=== PATIENT | male | born 1970 | race Caucasian/White ===

== ENCOUNTER → 2017-07-19 | Outpatient (CLI) | payer OTHER ==
[~2017-07-19] MED LIST: BENICAR40 MG PO; IOPAMIDOL 370 MG/ML 200 ML INFUS..BTL INJ ONE; LORATADINE10 MG PO; METOPROLOL SUCC50 MG PO; SODIUM CHLORIDE 0.9% 100 ML ONE
[2017-07-19 18:11] LABS: BLOOD UREA NITROGEN 21 mg/dL (7-26); BUN/CREATININE RATIO 17 (6-25); CREATININE, SERUM 1.27 mg/dL (0.72-1.25); EST GLOMERULAR FILTRATION RATE > 60 ML/MIN (60-)
--- NOTE | 2017-07-21 10:59 | Diagnostic Imaging Report ---
EXAM: CTA OF THE THORACIC AORTA INDICATION: Chest pain, aortic aneurysm COMPARISON: CTA chest from 12/30/2014 and 06/04/2016 TECHNIQUE: Multi-detector CT technology was employed. CTA imaging of the chest was performed after the administration of IV contrast. IV CONTRAST: 100 mL of Isovue-370 ORAL CONTRAST: None COMPLICATIONS: None RADIATION DOSE: Total DLP: 434.4 mGy*cm Estimated effective dose: (DLP x 0.015 x size factor) mSv CTDIvol has been reviewed. It is below the limits set by the Radiation Protocol Committee (RPC). For optimization of anatomic evaluation, multiplanar reconstruction, maximum intensity projections, and advanced 3-D off-line postprocessing were performed on a dedicated stand-alone workstation under the direct supervision of the interpreting physician. FINDINGS: Potential study limitations: None. LINES/ TUBES: None. VASCULAR WITH ADVANCED 3-D OFF-LINE POSTPROCESSING: Aortic valve morphology is trileaflet and contains no calcifications. 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 Stable aneurysm of the ascending thoracic aorta (4.7 cm, previously 4.8 cm). Normal size of the remaining thoracic aorta. There is no acute aortic pathology, such as dissection, intramural hematoma, or contained rupture. Aortic plaques: None. The arch vessel branching pattern is conventional. All of the arch branch vessels appear widely patent in their proximal portions. Carbon Dioxide Operator dimensions of the thoracic aorta are as follows: 2.5 cm at the aortic annulus 4.3 x 4.2 cm at the sinuses of Valsalva (the sinotubular junction is effaced) 4.7 cm at the mid ascending aorta, previously 4.8 cm 4.3 cm at the distal ascending aorta 2.6 cm at the mid transverse arch 3.0 cm at the proximal descending thoracic aorta, stable by direct comparison at the same level 2.2 cm at the diaphragmatic hiatus. LUNGS AND AIRWAYS: Biapical scarring. No focal consolidation. 4 mm nodule in the right upper lobe (series 7, image 38) is indeterminate. Airways are patent. PLEURA: The pleural spaces are clear.. HEART AND MEDIASTINUM: The thyroid gland is normal. No mediastinal, hilar or axillary lymphadenopathy. The main pulmonary artery is normal in size. The cardiac chambers demonstrate normal atrioventricular and ventriculoarterial concordance, and systemic and pulmonary venous return. The cardiac chambers are normal in size. The coronary arteries have normal origins and courses. There are no distinct coronary calcifications identified, though this study was not optimized for coronary artery evaluation. There is no pericardial effusion. LIMITED ABDOMEN: The limited images of the upper abdomen reveal no abnormalities of the visualized organs. BONES: Unremarkable. 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 No acute aortic pathology. Signed by: Dr. Casie Winn M.D. on 07/21/2017 10:55 AM
== END ==
LOC: CT 17:05
PROVIDERS: ATTEND Internal Medicine Interventional Cardiology
DX: I71.4 Abdominal aortic aneurysm, without rupture (principal)
CPT/HCPCS: 36415; 71275; 82565; 84520

== ENCOUNTER → 2018-11-11 | Outpatient (CLI) | payer OTHER ==
[~2018-11-11] MED LIST changes: +SODIUM CHLORIDE 0.9% 100 ML 100 ML ONE; -SODIUM CHLORIDE 0.9% 100 ML ONE
[2018-11-11 17:14] LABS: BLOOD UREA NITROGEN 15 mg/dL (7-26); BUN/CREATININE RATIO 13 (6-25); CREATININE, SERUM 1.19 mg/dL (0.72-1.25); EST GLOMERULAR FILTRATION RATE > 60 ML/MIN (60-)
--- NOTE | 2018-11-12 09:14 | Diagnostic Imaging Report ---
CHEST CT WITH ANEURYSM PROTOCOL WITH AND WITHOUT IV CONTRAST. 3D post-processing of the images was performed, and the post-processed images were used in interpretation. Comparison: CTA Chest of 07/19/2017. HISTORY: Thoracic aortic aneurysm FINDINGS: VESSELS: The aortic arch is left 3 vessel. At the level of the right pulmonary artery, the ascending aorta measures cm and the descending aorta measures 4.7 x 4.7 cm. No substantial atherosclerotic plaque involving the visualized portions of the aorta. There is no evidence of a flap within the aorta to suggest a dissection. Diaphragmatic hiatus: 2.2 x 2.3 cm Measured on candy cane view: Aortic annulus: 3.7 cm Aortic root / Sinuses of Valsalva: 4.5 cm Sinotubular junction:3.8 cm Ascending aorta: 4.7 cm The aortic arch measures 2.8 cm The mesenteric and renal arteries are not visualized in the chest CTA [id number]. The visualized portions of the splenic artery and hepatic arteries are patent. CHEST: The thyroid gland appears unremarkable. No supraclavicular, mediastinal, hilar, axillary, subpectoral, or internal mammary lymphadenopathy. The heart is not enlarged. No pericardial effusion. No pulmonary embolism to the segmental level. The subsegmental pulmonary arteries are not well opacified. There is minimal biapical pleural parenchymal thickening/scarring. The central airways are patent. No focal consolidation. There is bilateral lower lobe dependent subsegmental atelectasis. No suspicious pulmonary nodules. BONES: No acute osseous injury. No substantial degenerative change. No suspicious lytic or blastic lesions. UPPER ABDOMEN: Limited contrast enhanced views of the upper abdomen demonstrate no focal abnormality of the partially visualized liver, gallbladder, spleen, pancreas. The adrenal glands and kidneys are not visualized. IMPRESSION: Ascending thoracic aortic aneurysm with detailed measurements as above. Signed by: Joseph Georges MD on 11/12/2018 9:11 AM
== END ==
LOC: CT 16:20
PROVIDERS: ATTEND Internal Medicine Interventional Cardiology
DX: R07.9 Chest pain, unspecified (principal); I71.9 Aortic aneurysm of unspecified site, without rupture
CPT/HCPCS: 36415; 71275; 82565; 84520; Q9967